=== PATIENT | female | born 1950 | race Caucasian/White ===

== ENCOUNTER 2021-03-22 07:42 | Outpatient (REF) | payer MEDICARE, SELFPAY | END 2021-03-22 07:43 | disposition home or self-care (01) | LOC: HO.LAB 07:42 | PROVIDERS: PCP Internal Medicine; Visit Provider Internal Medicine | DX: Z20.822 Contact with and (suspected) exposure to COVID-19 (principal) | CPT/HCPCS: C9803; U0003; U0005 ==

== ENCOUNTER 2025-02-01 08:16 | Emergency (ER) | payer MEDICARE, SELFPAY ==
--- NOTE | ~2025-02-01 | XR_ITS ---
CLINICAL HISTORY: R sided pain Bilateral rib series with PA chest Comparison: None Findings: Normal cardiomediastinal silhouette. Eventration right hemidiaphragm. Minimal basilar atelectasis. No pneumothorax or pleural effusions. Surgical clips right breast. No rib fractures. No osteoblastic or osteolytic lesions. Impression: 1. No rib fractures demonstrated. This document has been electronically signed by: Randy Haynes MD on 02/01/2025 11:22:58
[2025-02-01 08:19] VITALS: BP 123/79; PULSE 93; RESP 19; TEMP 36.6; O2SAT 96; BMI 33.8
--- OUTSIDE RECORDS SUMMARY | 2025-02-01 08:48 | XMS_ITS | Patient Health Record ---
Author Organization [facility] [place] Address [address] [place] [address] Care Team Providers Care Teacher'S Assistant Name Role Phone Prateek Bernard MD Primary Care Provider UnavailAimee Tate Unavailable [phone] Allergies Allergen (clinical drug ingredient) Drug/Non Drug Allergy documented on EMR Reaction Allergy Type Onset Date Status amoxicillin Amoxicillin hives Drug Allergy Act barbara clindamycin Clindamycin HCl rash Drug Allergy Active Penicillin Unknown Drug Allergy Active Reason For Referral No Information Medications Medication SIG (Take, Route, Frequency, Duration) Notes Start Date End Date Status Toprol XL 200 MG 1 tablet Orally Once a day Active Levothyroxine Sodium 25 MCG 1 capsule in the morning on an empty stomach Orally Once a day Active Aspir-81 Active Diovan Not-Taking Calcium 800mg 1 tablet Orally Once a day Not-Taking Losartan Potassium 100 MG 1 tablet Orall y Once a day Active Prolia Not-Taking hydroCHLOROthiazide 25 MG 1 tablet in th e morning Orally Once a day Active Arimidex Not-Taking Atorvastatin Calcium 40 MG 1 tablet Oral ly Once a day Active clonazePAM 1 MG 1 tablet Orally Four times a day Active Vitamin D Active cloNIDine HCl 0.2 MG 1 tablet Orally Twice a day Active Immunizations Vaccine Route Administration Date Status Comme nts COVID-19 Moderna Vaccine Unknown 07/10/2021 Administered First Dose: 10/19/2020 Second Dose: 11/16/2020 Social History Tobacco Use: Social History Observation Description Date Details (start date - stop date) Never Smoker NA - NA Tobacco use other than smoking: Question Answer Notes Are you an other tobacco user? No Tobacco Control (Standard) Question Answer Notes Tobacco use: Nonsmoker Additional Findings: Tobacco non-user Current no nsmoker AUDIT-C (Standard) Question Answer Notes Did you have a drink containing alcohol in the p ast year? No Points 0 Interpretation Negative Vital Signs Blood pressure diastolic 80 mm Hg 01/01/2025 Height 5ft2in in 01/01/2025 Blood pressure systolic 130 mm Hg 01/01/2025 Weight 180 lbs 01/01/2025 BMI 32.92 kg/m2 01/01/2025 Procedures Procedure Date Ordered Date Performed Result Body Sit e 69730-VZEJ SKIN LESIONS, 2 TO 4 02/04/2024 N/A W3425-ESNBAJVG DYSTROPHIC NAILS ANY # 02/04/2024 N/A 18567-TZQH SKIN LESIONS, 2 TO 4 04/07/2024 N/A K2775-WIGNQYJS DYSTROPHIC NAILS ANY # 04/07/2024 N/A 39087-WCHQ SKIN LESIONS, 2 TO 4 06/12/2024 N/A C7495-OOFBTEFG DYSTROPHIC NAILS ANY # 06/12/2024 N/A E9624-AXTAYPKA DYSTROPHIC NAILS ANY # 01/01/2025 N/A 70969-CYMN SKIN LESIONS, 2 TO 4 01/01/2025 N/A J8503-TXGCKVBP DYSTROPHIC NAILS ANY # 10/30/2024 N/A 69986-PAWA SKIN LESIONS, 2 TO 4 10/30/2024 N/A M1119-OZFBUXEX DYSTROPHIC NAILS ANY # 08/28/2024 N/A 31562-BUUS SKIN LESIONS, 2 TO 4 08/28/2024 N/A Encounters Encounter Location Date Provider Diagnosis [address] [address] 02/04/2024 Aimee Black Dystrophic nail L60.3 and Keratosis punctata (palmaris et plantaris) L85.[address] [address] 04/07/2024 Aimee Black Dystrophic nail L60.3 and Keratosis punctata (palmaris et plantaris) L85.[address] [address] 06/12/2024 Aimee Black Dystrophic nail L60.3 and Keratosis punctata (palmaris et plantaris) L85.[address] [address] 08/28/2024 Aimee Black Dystrophic nail L60.3 and Keratosis punctata (palmaris et plantaris) L85.[address] [address] 10/30/2024 Aimee Black Dystrophic nail L60.3 and Keratosis punctata (palmaris et plantaris) L85.[address] [address] 01/01/2025 Aimee Black Dystrophic nail L60.3 and Keratosis punctata (palmaris et plantaris) L85.2 Assessments Encounter Date Diagnosis (ICD Code) Assessment Notes Treatment Notes Treatment Clinical Notes Section Notes 02/04/2024 Dystrophic nail (ICD-10 - L60.3) 04/07/2024 Dystrophic nail (ICD-10 - L60.3) 06/12/2024 Dystrophic nail (ICD-10 - L60.3) 08/28/2024 Dystrophic nail (ICD-10 - L60.3) 10/30/2024 Dystrophic nail (ICD-10 - L60.3) 01/01/2025 Dystrophic nail (ICD-10 - L60.3) 01/01/2025 Keratosis punctata (palmaris et plantaris) (ICD-10 - L85.2) 10/30/2024 Keratosis punctata (palmaris et plantaris) (ICD-10 - L85.2) 08/28/2024 Keratosis punctata (palmaris et plantaris) (ICD-10 - L85.2) 06/12/2024 Keratosis punctata (palmaris et plantaris) (ICD-10 - L85.2) 04/07/2024 Keratosis punctata (palmaris et plantaris) (ICD-10 - L85.2) 02/04/2024 Keratosis punctata (palmaris et plantaris) (ICD-10 - L85.2) Plan Of Treatment Pending Test Test Name Order Date 44863-MOXXCQW NAIL, 6 OR MORE 05/04/2011 42650-DGGOCDI NAIL, 6 OR MORE 07/17/2011 43516-XNSPWYH NAIL, 6 OR MORE 09/27/2011 02177-XUQVNGJ NAIL, 6 OR MORE 12/04/2011 87352-BVAYDCY NAIL, 6 OR MORE 02/19/2012 21878-BPDISTE NAIL, 6 OR MORE 05/01/2012 45242-ZGZSKIV NAIL, 6 OR MORE 07/04/2012 28436-FNSKSVH NAIL, 6 OR MORE 10/02/2012 57335-HTUSONP NAIL, 6 OR MORE 12/11/2012 48890-NLPJOPU NAIL, 6 OR MORE 03/12/2013 13902-BTCJKZI NAIL, 6 OR MORE 05/14/2013 21495-WGPXMEP NAIL, 6 OR MORE 07/16/2013 73512-IUEDFGU NAIL, 6 OR MORE 09/17/2013 18385-TBZVZJJ NAIL, 6 OR MORE 11/19/2013 99270-YNLZWFW NAIL, 6 OR MORE 01/14/2014 39965-PCCAVEZ NAIL, 6 OR MORE 05/20/2014 00913-DDNAGBA NAIL, 6 OR MORE 03/18/2014 38974-KCUWRCP NAIL, 6 OR MORE 07/20/2014 85119-LKSMRNL NAIL, 6 OR MORE 11/30/2014 16082-SRQYZTM NAIL, 6 OR MORE 02/01/2015 58963-JJLHIHW NAIL, 6 OR MORE 09/23/2014 82478-ILGPRZC NAIL, 6 OR MORE 04/08/2015 69157-GTCMAWO NAIL, 6 OR MORE 09/01/2015 56826-KGIJEEO NAIL, 6 OR MORE 11/10/2015 75449-IEZDDTK NAIL, 6 OR MORE 01/12/2016 85762-ZHKAAPF NAIL, 6 OR MORE 03/15/2016 83994-EPSHYXR NAIL, 6 OR MORE 05/17/2016 88166-QMJUEMJ NAIL, 6 OR MORE 07/27/2016 52017-PXFGBKO NAIL, 6 OR MORE 10/09/2016 32387-OQDWZYA NAIL, 6 OR MORE 12/14/2016 53028-QJFQXLM NAIL, 6 OR MORE 02/15/2017 18981-TQVOXQS NAIL, 6 OR MORE 04/23/2017 37064-XFSVKEC NAIL, 6 OR MORE 06/25/2017 67761-KKWCLKW NAIL, 6 OR MORE 09/06/2017 35108-PMWGZQI NAIL, 6 OR MORE 12/20/2017 17733-RDPZRCI NAIL, 6 OR MORE 03/21/2018 56776-OHWLYZG NAIL, 6 OR MORE 05/23/2018 07041-EJGHYNY NAIL, 6 OR MORE 08/01/2018 58721-HXTZIMR NAIL, 6 OR MORE 10/03/2018 64661-JHTDROI NAIL, 6 OR MORE 06/16/2015 12109-Yxcemcql Plate 06/16/2015 97225-Bucthxhe Plate 01/01/2020 71531-Mxuciqxs Plate 10/09/2016 55754-Onksdlzf Plate 04/08/2015 39992-Xrpgzppo Plate 11/30/2014 97937-Cuvpftxl Plate 02/01/2015 99736-Gxnncwqx Plate 07/20/2014 05747-Hqxyqilm Plate 03/18/2014 36485-Xspaceuq Plate 05/20/2014 53732-Icceauga Plate 01/14/2014 59044-Qcqbwkpf Plate 11/19/2013 29240-Thxpgdzw Plate 07/16/2013 38707-Rxhhprtg Plate 09/17/2013 06371-Zmdtnnyf Plate 07/18/2021 77455-Eiogdixe Plate 10/20/2021 16916-Fbmwxakq Plate Each Additional 96500-Myzxqvkg Plate Each Additional 50251-Uznrakqp Plate Each Additional 65282-Wbmlyxje Plate Each Additional 62870-Ifukakgr Plate Each Additional 31116-Agsijcgo Plate Each Additional 19906-Fdfsjxgx Plate Each Additional 03/2015 80684-Rgbulgua Plate Each Additional 01/2015 83501-Vpmulmla Plate Each Additional 02/2020 16298-Amwtrpav Plate Each Additional 24193- Debride <25 sq cm 05/04/2011 69990- Debride <25 sq cm 05/20/2014 93041- Debride <25 sq cm 05/01/2012 29120- Debride <25 sq cm 12/30/2020 96618 I&D ABSCESS- SIMPLE,SINGLE 013 67630 I&D ABSCESS- SIMPLE,SINGLE 012 37255-KTMF SKIN LESIONS, 2 TO 4 10/23/19 20 21044-VKUE SKIN LESIONS, 2 TO 4 03/15/20 20 53277-SFRL SKIN LESIONS, 2 TO 4 05/31/20 20 24445-IDMQ SKIN LESIONS, 2 TO 4 02/07/20 52158-WDLB SKIN LESIONS, 2 TO 4 04/24/20 73698-BRNY SKIN LESIONS, 2 TO 4 06/05/20 62932-GJYX SKIN LESIONS, 2 TO 4 08/14/20 76935-DNQX SKIN LESIONS, 2 TO 4 02/22/20 21 47540-VUMD SKIN LESIONS, 2 TO 4 04/25/20 21 24854-EBDT SKIN LESIONS, 2 TO 4 08/09/20 85546-QRGD SKIN LESIONS, 2 TO 4 12/24/19 89047-KRPK SKIN LESIONS, 2 TO 4 12/23/19 86900-KAKW SKIN LESIONS, 2 TO 4 02/24/20 98636-YMII SKIN LESIONS, 2 TO 4 04/27/20 46796-KLET SKIN LESIONS, 2 TO 4 07/06/20 71908-KRFD SKIN LESIONS, 2 TO 4 09/07/19 23175-JUCD SKIN LESIONS, 2 TO 4 11/14/19 25701-UUXJ SKIN LESIONS, 2 TO 4 01/16/20 12507-SWQB SKIN LESIONS, 2 TO 4 03/19/20 23 25877-KPSG SKIN LESIONS, 2 TO 4 05/31/20 29418-BPFY SKIN LESIONS, 2 TO 4 07/23/20 57803-DERF SKIN LESIONS, 2 TO 4 09/24/19 59165-NIQE SKIN LESIONS, 2 TO 4 01/02/20 76874-OBBG SKIN LESIONS, 2 TO 4 08/28/19 47096-CRID SKIN LESIONS, 2 TO 4 10/31/19 92640-BNHI SKIN LESIONS, 2 TO 4 11/29/19 25926-BKDJ SKIN LESIONS, 2 TO 4 02/04/20 24 54874-DUWY SKIN LESIONS, 2 TO 4 04/07/20 24 56242-SRDQ SKIN LESIONS, 2 TO 4 06/12/20 O2908-HATOJBLN DYSTROPHIC NAILS ANY # S2074-NVMMJQZK DYSTROPHIC NAILS ANY # Y3018-WILJMFWL DYSTROPHIC NAILS ANY # V4262-EIXSPMKP DYSTROPHIC NAILS ANY # U1976-YFICZARA DYSTROPHIC NAILS ANY # N6020-KFWBTASO DYSTROPHIC NAILS ANY # U3372-DNLZJGEZ DYSTROPHIC NAILS ANY # G8451-UAINZSZN DYSTROPHIC NAILS ANY # M6695-PWDSGHSN DYSTROPHIC NAILS ANY # N1811-UJXDICXP DYSTROPHIC NAILS ANY # D1289-ZFPPIGFZ DYSTROPHIC NAILS ANY # Z0713-GRXTRVPH DYSTROPHIC NAILS ANY # P3276-LSBGMSLR DYSTROPHIC NAILS ANY # S7785-MTBXKSTP DYSTROPHIC NAILS ANY # Q3216-KPERCNCY DYSTROPHIC NAILS ANY # Z5760-KXRICBQK DYSTROPHIC NAILS ANY # D2580-GIFQMJRJ DYSTROPHIC NAILS ANY # G8158-PAZDYVAM DYSTROPHIC NAILS ANY # G1132-TEGPYKXV DYSTROPHIC NAILS ANY # I5343-IJTIHUCP DYSTROPHIC NAILS ANY # B4220-BTJXIYPQ DYSTROPHIC NAILS ANY # O6786-UNHFUBSI DYSTROPHIC NAILS ANY # R0155-PZYIVEWN DYSTROPHIC NAILS ANY # A8758-BYXHGOTL DYSTROPHIC NAILS ANY # U9076-CAJGLADS DYSTROPHIC NAILS ANY # Q3682-XDBSBITY DYSTROPHIC NAILS ANY # T3867-SFCUXTTQ DYSTROPHIC NAILS ANY # C0682-IPKKZSJX DYSTROPHIC NAILS ANY # Y2330-WORKFLJM DYSTROPHIC NAILS ANY # X7220-URBAJRGW DYSTROPHIC NAILS ANY # Next Appt Details Provider Name:Aimee Osman Samm , 03/05/2025 02:30:00 PM, [address] [place] [address], [phone], Provider Name:Aimee Osman Samm , 05/07/2025 01:30:00 PM, [address] [place] [address], [phone], Insurance Providers Payer Name Payer Address Payer Phone Subscriber Number Group Number Insured Name Patient Relationship to Insured Coverage Start Date Coverage End Date Medicare [employer] [address] [place] [address] [phone] [id number] Philippe Ortega Self - patient is the insured [address] [facility] [address] [place] [address] [id number] Philippe Ortega Self - patient is the insured Medical (General) History Medical History History ICD Code thyroid disorder measles mumps hypertension cancer chicken pox Anxiety disorder Surgical History Surgery Date(Month/Year) lumpectomy 2008
[2025-02-01 08:50] LABS: Appearance Urine Turbid; Color Urine Yellow; Glucose Urine UA Negative (Negative); Leukocyte Esterase Urine Trace (Negative); Nitrite Urine Negative (Negative); PH 5.5 (5.0-9.0); UMIC TRIGGER UACC YES; Urine Blood Moderate (2+) (Negative); Urine Ketones Negative (Negative); Urine Protein 30 (1+) mg/dL (Neg-Trace)
[2025-02-01 08:51] LABS: Basophils Absolute Auto 0.1 X10*3/uL (0.0-0.2); Basophils Percent Auto 0.3 % (0-2); Hematocrit 40.8 % (37.0-47.0); Hemoglobin 13.7 g/dl (12.0-16.0); Imm Gran Abs Auto 0.25 X10*3/uL (0.00-0.03); Imm Gran Pct Auto 1.1 % (0.0-0.4); Lymphocytes Absolute Auto 0.8 X10*3/uL (1.2-4.9); Lymphocytes Percent Auto 3.6 % (20-40); MANUAL DIFF FLAG SCAN; Mean Corpuscular HGB Conc 33.6 g/dl (31.0-35.0); Mean Corpuscular Hemoglobin 30.3 pg (27.0-33.0); Mean Corpuscular Volume 90.3 fL (80.0-98.0); Mean Platelet Volume 10.5 fL (9.4-12.3); Monocytes Absolute Auto 0.8 X10*3/uL (0.1-1.2); Monocytes Percent Auto 3.2 % (2-11); Neutrophils Absolute Auto 21.3 x10*3/uL (2.0-8.3); Neutrophils Percent Auto 91.8 % (45-73); Platelet Count 216 X10*3/uL (160-400); Red Blood Count 4.52 X10*6/uL (4.20-5.50); Red Cell Distribution Width 13.5 % (11.0-16.0); SCAN SMEAR FLAG 1; White Blood Count 23.2 X10*3/uL (4.8-10.8)
[2025-02-01 08:55] LABS: Bacteria Urine 4+ (None Seen); Squamous Epithelial Cell Urine >20 /HPF (0-2); UACC Culture Trigger YES
[2025-02-01 09:04] LABS: Alanine Aminotransferase < 6 U/L (0-31); Albumin Level 3.8 g/dL (3.5-5.0); Alkaline Phosphatase 59 U/L (39-117); Anion Gap 14 (12-20); Aspartate Amino Transferase 22 U/L (5-31); Bilirubin Direct 0.6 mg/dL (0.0-0.5); Bilirubin Total 1.6 mg/dL (0.0-1.0); Blood Urea Nitrogen 23 mg/dL (9-16); Calcium 8.9 mg/dL (8.4-10.2); Carbon Dioxide 21 mmol/L (22-29); Chloride 97 mmol/L (96-108); Creatinine Clr Calc Pharmacy 33.2; Estimated Glomerular Filt Rate 35; Glucose Random 190 mg/dL (60-115); Lipase 11 U/L (8-78); Potassium 3.6 mmol/L (3.3-5.1); Sodium 128 mmol/L (135-145); Total Protein 7.2 g/dL (6.5-8.0)
[2025-02-01 09:09] LABS: SLIDE REVIEW VERIFIED
[2025-02-01 09:29] VITALS: BP 141/49; PULSE 87; RESP 18; O2SAT 95
--- NOTE | 2025-02-01 10:16 | ED.GENADULT ---
HPI - General Adult General Chief complaint: Abdominal Pain Stated complaint: abd pain Time Seen by Provider: 02/01/25 10:06 Source: patient, family (sister), RN notes reviewed and old records reviewed Mode of arrival: ambulatory Limitations: no limitations History of Present Illness ED Provider: Shanna HPI narrative: Patient is a 74-year-old female with history of anxiety, Graves disease, breast cancer, hypertension presenting to the emergency department with complaint of right flank and back pain. States that on Sunday she tripped over a dog bed, did not fall but braced herself and immediately developed pain to her right side. She denies falling against a couch or any other object. Denies head strike, loss of consciousness. Has been taking Tylenol with little relief, has used heating pads with some relief. States pain resolves with rest but worsens with movement. Worse with deep inspiration and belching. Reports some abdominal discomfort on Sunday prior to this incident as well as around 4 episodes of loose stool but states that she ate bad food including [employer] donuts and a hot dog. Avoids NSAIDs due to her HTN. Denies any nausea, vomiting or fever. Denies hematuria or other urinary symptoms. MD complaint: flank and back pain Onset (ago): day(s) Related Data Previous Rx's ?Medication ?Instructions ?Recorded cyclobenzaprine 5 mg tablet 5 mg PO TID PRN muscle spasm #10 02/01/25 tabs Allergies Allergy/AdvReac Type Severity Reaction Status Date / Time amoxicillin Allergy Unknown Unknown Verified 02/01/25 08:22 penicillin V Allergy Unknown Unknown Verified 02/01/25 08:22 Clindamycin HCl Allergy Unknown Unknown Uncoded 02/01/25 08:22 Review of Systems Review of Systems: As per HPI Yes all other systems are reviewed and are negative Constitutional: Constitutional: Reports as per HPI [facility] Social History Social History Smoked in Last 30 Days: No Use of substances other than those prescribed or required for medical reasons: No Advance Directives: No Advance Directives Information Provided: No Do you have a plan to hurt others: No Plan Physical Exam ED Vital Signs: Vital Signs - 24 hr 02/01/25 08:19 02/01/25 09:29 02/01/25 10:22 Temperature 98 F Pulse Rate 93 87 77 Respiratory Rate 19 18 16 Blood Pressure 123/79 141/49 H 138/67 Pulse Oximetry 96 95 95 Oxygen Delivery Method Room Air Room Air Room Air 02/01/25 12:23 02/01/25 14:24 Temperature Pulse Rate 75 69 Respiratory Rate 12 14 Blood Pressure 142/69 H 144/76 H Pulse Oximetry 95 95 Oxygen Delivery Method Room Air Room Air BMI result Body Mass Index 33.8 Vital signs have been reviewed and appear to be correct. Blood pressure normal. Heart rate normal. Respiratory rate normal. Temperature normal. Oxygen saturation normal. Const General: cooperative, healthy appearing and no acute distress Orientation/consciousness: oriented to person, oriented to place, oriented to time and patient oriented x3 Limitations: no limitations [facility] Head: Yes normocephalic and Yes atraumatic Ears: external ears normal General nose exam: Normal external nose present Face and sinus: Yes face symmetric Mouth: oropharynx normal and moist mucous membranes Throat: Yes uvula midline Eyes Pupils: Equal, round and reactive pupils present Neck Neck: Yes normal visual inspection and Yes supple Chest Chest palpation & inspection: normal inspection of the chest and tenderness costal cartilage right mid-axillary line involving the 7th-8th rib, involving the 8th-9th rib and involving the 9th-10th rib Resp Effort & Inspection: normal respiratory effort and able to speak in complete sentences Auscultation: clear to auscultation bilaterally Cardio Rate: regular rate Rhythm: regular rhythm Heart sounds: S1 normal heart sound present and S2 normal heart sound present GI Palpation (GI): Soft to palpation, nontender, no guarding and No Rebound tenderness present Auscultation: normoactive bowel sounds General: Yes no CVA tenderness Back/Spine/Pelvis Back: no CVA tenderness Cervical Spine: normal cervical lordosis, cervical ROM normal, No cervical muscular tenderness, No pain with cervical ROM, No Cervical spine tenderness and No step off deformity Thoracic/Lumbar Spine: thoracic and lumbar spine normal to inspection, thoraco-lumbar ROM normal, pain with thoraco-lumbar ROM, No thoracic spinal tenderness and No lumbar spinal tenderness Skin General skin exam: elasticity normal and turgor normal Neuro General: oriented to person, oriented to place, oriented to time, patient oriented x3, moves all extremities, no focal motor deficits and CN's II-XI intact bilaterally Cranial nerves: Yes Equal, round and reactive pupils present Cognition (Neuro): normal cognition Extrem General: Yes full ROM, Yes no pedal edema and Yes no calf tenderness Psych Mental Status: mental status grossly normal Affect: normal affect Thought process: Normal thought process present Medical Decision Making Medical Decision Making [facility] Narrative: Patient is a 74-year-old female with history of anxiety, Graves disease, breast cancer, hypertension presenting to the emergency department with complaint of right flank and back pain. On exam patient is awake, A+Ox3, VS WNL, afebrile, normal neurological exam without focal deficits, physical exam findings as above. Given reported symptoms and physical exam findings, initial differential includes but is not limited to muscle strain, costochondritis, rib fracture. Do not suspect cholecystitis, renal injury. Labs ordered via protocol in triage by RN notable for leukocytosis with left shift, hyponatremia, BUN/Cr slightly elevated from baseline as compared to labs done through [facility]. Had labs done on 01/30 for an upcoming appointment with her PCP this Sunday, WBC was 8.4 at that time, is 23.2 today. X-ray ribs notable for no rib fractures, no evidence of pneumonia. My interpretation is in agreement with the radiologist's interpretation. UA notable for trace leukocytes, 2+ blood, 4+ bacteria, however >20 epithelials so contaminated. Will have patient attempt to obtain a new clean catch. Patient reports some recent nasal congestion but denies cough, fever. Abdomen remains nontended throughout on exam. Repeat UA is without evidence of infection. Viral panel negative. Case discussed with attending Dr. Healy, who agrees patient is stable for discharge home as she if following up with her PCP on Sunday, is afebrile and well appearing. Return precautions discussed with patient at bedside. Patient verbalized understanding of and agreement with plan. Differential Diagnosis Differential Diagnoses: The differential diagnosis associated with the presentation includes As per [facility] Admission/Observation Consideration of admission/observation: Escalation of care including admission/observation considered Patient would have been admitted to the hospital had their work up had any findings where hospital admission was appropriate and their clinical presentation warranted hospital admission. Lab Data [facility] Lab Attestation statement: I reviewed the patient's lab results. As per [facility] 02/01/25 08:41 02/01/25 08:41 Labs: Lab Results 02/01/25 02/01/25 02/01/25 Range/Units 08:41 12:01 12:10 WBC 23.2 H (4.8-10.8) X10*3/uL RBC 4.52 (4.20-5.50) X10*6/uL Hgb 13.7 (12.0-16.0) g/dl Hct 40.8 (37.0-47.0) % MCV 90.3 (80.0-98.0) fL MCH 30.3 (27.0-33.0) pg MCHC 33.6 (31.0-35.0) g/dl RDW 13.5 (11.0-16.0) % Plt Count 216 (160-400) X10*3/uL MPV 10.5 (9.4-12.3) fL Immature Gran % (Auto) 1.1 H (0.0-0.4) % Neut % (Auto) 91.8 H (45-73) % Lymph % (Auto) 3.6 L (20-40) % [place] % (Auto) 3.2 (2-11) % Eos % (Auto) 0.0 (0-4) % Baso % (Auto) 0.3 (0-2) % Lymph # (Auto) 0.8 L (1.2-4.9) X10*3/uL [place] # (Auto) 0.8 (0.1-1.2) X10*3/uL Eos # (Auto) 0.0 (0.0-0.4) X10*3/uL Baso # (Auto) 0.1 (0.0-0.2) X10*3/uL Abs Immat Gran (auto) 0.25 H (0.00-0.03) X10*3/uL Absolute Neuts (auto) 21.3 H (2.0-8.3) x10*3/uL Absolute Nucleated RBC 0.000 (0.0-0.012) X10*3/uL Nucleated RBC % (auto) 0.0 (0.0-0.2) /100WBC Smear Tech's Comments VERIFIED Sodium 128 L (135-145) mmol/L Potassium 3.6 (3.3-5.1) mmol/L Chloride 97 (96-108) mmol/L Carbon Dioxide 21 L (22-29) mmol/L Anion Gap 14 (12-20) BUN 23 H (9-16) mg/dL Creatinine 1.47 H (0.5-1.4) mg/dL Estim Creat Clear Calc 33.2 Estimated GFR 35 Random Glucose 190 H (60-115) mg/dL Calcium 8.9 (8.4-10.2) mg/dL Total Bilirubin 1.6 H (0.0-1.0) mg/dL Direct Bilirubin 0.6 H (0.0-0.5) mg/dL AST 22 (5-31) U/L ALT < 6 (0-31) U/L Alkaline Phosphatase 59 (39-117) U/L Total Protein 7.2 (6.5-8.0) g/dL Albumin 3.8 (3.5-5.0) g/dL Lipase 11 (8-78) U/L Urine Color Yellow Yellow Urine Appearance Turbid Clear Urine pH 5.5 6.0 (5.0-9.0) Ur Specific [place] 1.020 1.010 (1.005-1.025) Urine Protein 30 (1+) H Negative (Neg-Trace) mg/dL Urine Glucose (UA) Negative Negative (Negative) mg/dL Urine Ketones Negative Negative (Negative) mg/dL Urine Blood Moderate (2+) H Trace H (Negative) Urine Nitrite Negative Negative (Negative) Ur Leukocyte Esterase Trace H Negative (Negative) Urine RBC 6-10 H 0-2 (0-2) /HPF Urine WBC 6-10 H 0-5 (0-5) /HPF Ur Squamous Epith Cells >20 6-10 (0-2) /HPF Urine Bacteria 4+ Trace (None Seen) Hyaline Casts 3-5 0-2 (0-2) /LPF Influenza Type A (PCR) NEGATIVE (Negative) Influenza Type B (PCR) NEGATIVE (Negative) RSV RNA Qual (PCR) NEGATIVE (Negative) SARS-CoV-2 RNA (RT-PCR) NEGATIVE (Negative) Independent Interpretation I performed an independent interpretation of an: Plain X-Ray Interpretation: Rib x-ray notable for no evidence of acute fracture, no pneumonia Radiology Impression Discussion of test interpretation with radiology: I have reviewed the radiologist's reading. Radiologist Impression: Bilateral rib series with PA chest Comparison: None Findings: Normal cardiomediastinal silhouette. Eventration right hemidiaphragm. Minimal basilar atelectasis. No pneumothorax or pleural effusions. Surgical clips right breast. No rib fractures. No osteoblastic or osteolytic lesions. Impression: 1. No rib fractures demonstrated. External Record Review External record reviewed: Inpatient record, Office record and Outpatient record Prescription Management I considered prescription management with: Other Critical Care Time Critical Care Time Critical Care Time: Yes Total Critical Care Time: 33 Attestation: I have personally provided critical care time exclusive of time spent on separately billable procedures. Time includes review of lab data, radiology results, discussion with consultants, and monitoring for potential decompensation. Intervention performed as documented. Discharge Plan Discharge Clinical Impression: Muscle strain Patient Disposition: Home, Self-Care Additional Instructions: You were evaluated in the emergency department today for pain to your right side after a near fall. This pain is likely due to a muscle strain. Your white blood cell count today was noted to be elevated at 23.2 which is significantly higher than on your labs done on 01/30/25. We did not find a source of infection at your visit today, your urine does not appear infected, your chest xray did not show evidence of pneumonia, and you tested negative for flu, covid and RSV. Please mention this lab abnormality to your PCP at your visit on Sunday. Your sodium level was also mildly low, you can add additional salt to you food for the next few days. You are being prescribed a muscle relaxer called cyclobenzaprine which you can take every 8 hours as needed. Do not drink alcohol or operate heavy machinery while taking this medication as it can cause excessive drowsiness. You can also continue to apply warm compresses to the affected area. Return to the emergency department if you develop fever, worsening pain, blood in your urine or stool, persistent vomiting, or any other new or concerning symptoms. Prescriptions: New cyclobenzaprine 5 mg tablet 5 mg PO TID PRN (Reason: muscle spasm) Qty: 10 0RF Print Language: German
[2025-02-01 10:22] VITALS: BP 138/67; PULSE 77; RESP 16; O2SAT 95
[2025-02-01 12:10] LABS: Appearance Urine Clear; Color Urine Yellow; Glucose Urine UA Negative (Negative); Leukocyte Esterase Urine Negative (Negative); Nitrite Urine Negative (Negative); UMIC TRIGGER UACC YES; Urine Blood Trace (Negative); Urine Ketones Negative (Negative); Urine Protein Negative (Neg-Trace)
[2025-02-01 12:13] LABS: Bacteria Urine Trace (None Seen); Hyaline Casts Urine 0-2 /LPF (0-2); RBC Urine 0-2 /HPF (0-2); WBC Urine 0-5 /HPF (0-5)
[2025-02-01 12:23] VITALS: BP 142/69; PULSE 75; RESP 12; O2SAT 95
[2025-02-01 12:52] LABS: Influenza A PCR NEGATIVE (Negative); Influenza B PCR NEGATIVE (Negative); Resp Syncy Virus RNA Qual PCR NEGATIVE (Negative); SARS COV2 PCR INHOUSE NEGATIVE (Negative)
[2025-02-01 14:24] VITALS: BP 144/76; PULSE 69; RESP 14; O2SAT 95
[2025-02-01 15:25] VITALS: BP 144/76; PULSE 68; RESP 16; TEMP 36.6; O2SAT 95
--- NOTE | 2025-02-01 15:26 | PC.NURSE ---
Pt. given dc instructions, all questions answered. Pt. family member taking pt. home.
== END 2025-02-01 15:27 | disposition home or self-care (01) ==
PROVIDERS: Registered Nurse Emergency; Emergency Provider Emergency Medicine; PCP Internal Medicine
DX: S39.011A Strain of muscle, fascia and tendon of abdomen, initial encounter (principal); W18.41XA Slipping, tripping and stumbling without falling due to stepping on object, initial encounter; Y93.89 Activity, other specified; Y92.019 Unspecified place in single-family (private) house as the place of occurrence of the external cause; Y99.8 Other external cause status
CPT/HCPCS: 0241U; 36415; 71111; 80048; 80076; 81001; 83690; 85025; 87086; 99283; 99284